=== PATIENT | female | born 1980 | race African-American/Black ===

== ENCOUNTER 2016-09-21 20:33 | Emergency (ER) | payer OTHER ==
[~2016-09-21] VITALS: Ht 170.2 cm; Wt 93.0 kg
[2016-09-21] MEDS ORDERED: KEFLEX500 MG PO (23:13)
[2016-09-21 23:35] VITALS: BP 110/57
== END 2016-09-21 23:52 | disposition home or self-care (01) ==
LOC: RME 20:33 → EME 20:33 → RME 23:52
PROC: 0X950ZZ Drainage of Left Axilla, Open Approach (ICD-10-PCS; principal; 2016-09-21)
DX: L02.412 Cutaneous abscess of left axilla (principal)
CPT/HCPCS: 99281; 99284